=== PATIENT | female | born 2000 | race Hispanic/Latino ===

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

== ENCOUNTER 2023-07-16 15:07 | Emergency (ER) | payer OTHER ==
[~2023-07-16] VITALS: Ht 160 cm; Wt 60.3 kg
[~2023-07-16 15:07] MED LIST: ONDA4TAB6 PO
[2023-07-16] MEDS ORDERED: PREN1CHW6 PO (15:41)
[2023-07-16] MEDS ORDERED: NS 1,000 ML IV ONE (16:20)
[2023-07-16] MEDS ORDERED: ACETAMINOPHEN 500 MG TAB PO ONE (18:00)
[2023-07-16 18:56] LABS: BASO # 0.1 10^3/uL (0.0-0.2); BASO % 0.2 % (0.0-1.0); HEMATOCRIT 33.2 % (36.0-47.0); HEMOGLOBIN 11.2 g/dl (12.0-15.5); LYMPH # 0.8 10^3/uL (1.5-5.0); LYMPH % 3.6 % (24.0-44.0); MEAN CORPUSCULAR HEMOGLOBIN 29.2 pg (27.0-33.0); MEAN CORPUSCULAR HGB CONC 33.7 g/dl (32.0-36.5); MEAN CORPUSCULAR VOLUME 86.7 fl (80.0-96.0); MONO % 9.4 % (2.0-8.0); NEUTROPHILS # 19.7 10^3/uL (1.5-8.5); NEUTROPHILS % 85.7 % (36.0-66.0); PLATELET COUNT, AUTOMATED 261 10^3/uL (150-450); RED BLOOD COUNT 3.83 10^6/uL (4.00-5.40)
[2023-07-16 18:59] LABS: MONO # 2.2 10^3/uL (0.0-0.8)
[2023-07-16] MEDS ORDERED: cefTRIAXone SOD 1 GM in D5W MINI-BAG PLUS 50 ML IV ONE (19:05)
[2023-07-16] MEDS ORDERED: MED REC IN PROGRESS XX SCH (19:20)
[2023-07-16] MEDS ORDERED: HOME MED LIST COMPLETE! XX SCH (19:50)
[2023-07-16 20:16] VITALS: BP 109/61; TEMP 98.7; O2SAT 98
[2023-07-16 20:20] LABS: RSV AMPLIFICATION NEGATIVE (NEGATIVE)
[2023-07-16] MEDS ORDERED: LR 1,000 ML IV SCH (20:30)
[2023-07-16] MEDS ORDERED: ONDANSETRON 4MG 2ML VIAL IV PRN (20:30)
[2023-07-17] MEDS ORDERED: ACETAMINOPHEN 500 MG TAB PO SCH
[2023-07-17 08:42] LABS: BILIRUBIN,DIRECT 0.3 MG/DL (0.1-0.4); BILIRUBIN,TOTAL 0.8 MG/DL (0.2-1.3); TOTAL PROTEIN 7.4 G/DL (6.3-8.2)
[2023-07-17] MEDS ORDERED: ACET325C5 PO (22:42)
== END 2023-07-16 20:18 | disposition admitted as inpatient to this hospital (09) ==
LOC: M ED 15:07
DX: Z53.21 Procedure and treatment not carried out due to patient leaving prior to being seen by health care provider (principal)

== ENCOUNTER 2023-07-16 20:28 | Observation (INO) | payer OTHER ==
[~2023-07-16] VITALS: Ht 160 cm; Wt 62.3 kg
[~2023-07-16 20:28] MED LIST changes: +PREN1CHW6 PO
[2023-07-16 20:32] VITALS: BP 107/64
[2023-07-17 00:32] VITALS: BP 120/72
[2023-07-17] MEDS ORDERED: ONDANSETRON 4MG 2ML VIAL IV PRN (00:45)
[2023-07-17] MEDS ORDERED: ACETAMINOPHEN 500 MG TAB PO PRN (00:45)
[2023-07-17] MEDS: LR 1,000 ML IV SCH ×3 (00:59→16:45)
[2023-07-17 04:15] VITALS: BP 113/61
[2023-07-17] MEDS: ACETAMINOPHEN 500 MG TAB PO SCH ×2 (07:26→13:33)
[2023-07-17 07:27] VITALS: BP 105/56
[2023-07-17 07:51] LABS: BASO # 0.1 10^3/uL (0.0-0.2); BASO % 0.2 % (0.0-1.0); EOS % 0.1 % (0.0-3.0); HEMATOCRIT 27.9 % (36.0-47.0); HEMOGLOBIN 9.5 g/dl (12.0-15.5); LYMPH # 1.1 10^3/uL (1.5-5.0); LYMPH % 5.2 % (24.0-44.0); MEAN CORPUSCULAR HGB CONC 34.1 g/dl (32.0-36.5); MEAN CORPUSCULAR VOLUME 85.1 fl (80.0-96.0); MONO % 13.2 % (2.0-8.0); NEUTROPHILS # 16.7 10^3/uL (1.5-8.5); NEUTROPHILS % 77.8 % (36.0-66.0); PLATELET COUNT, AUTOMATED 224 10^3/uL (150-450); RED BLOOD COUNT 3.28 10^6/uL (4.00-5.40); WHITE BLOOD COUNT 21.5 10^3/uL (4.0-10.0)
[2023-07-17 08:15] LABS: MONO # 2.8 10^3/uL (0.0-0.8)
[2023-07-17 11:19] VITALS: BP 113/57
[2023-07-17 15:21] VITALS: BP 108/59
[2023-07-17 17:34] VITALS: BP 100/56
[2023-07-17] MEDS ORDERED: ACET325C5 PO (22:42)
[2023-07-18 07:02] LABS: BLOOD UREA NITROGEN 4 MG/DL (7-21); CREATININE FOR GFR 0.5 MG/DL (0.7-1.5); GLUCOSE, FASTING 64 MG/DL (70-99)
[2023-07-18 07:03] LABS: CHLORIDE LEVEL 103 MEQ/L (98-107); GLOMERULAR FILTRATION RATE > 60.0 (>60); POTASSIUM SERUM 4.2 MEQ/L (3.6-5.0); SODIUM LEVEL 134 MEQ/L (134-153)
[2023-07-18 07:04] LABS: ALT/SGPT 21 U/L (1-33); AST/SGOT 25 U/L (5-40); CALCIUM LEVEL 9.2 MG/DL (8.4-10.2); CARBON DIOXIDE LEVEL 13 MEQ/L (22-30)
[2023-07-18 07:05] LABS: ALKALINE PHOSPHATASE 137 U/L (35-104); BILIRUBIN,TOTAL < 0.7 MG/DL (0.2-1.3)
[2023-07-18 07:06] LABS: ALBUMIN 3.2 G/DL (3.9-5.0)
== END 2023-07-17 17:58 | disposition home or self-care (01) ==
LOC: M LDI 20:28
PROVIDERS: ADMIT Obstetrics & Gynecology; ATTEND Obstetrics & Gynecology
DX: O98.513 Other viral diseases complicating pregnancy, third trimester (principal); Z3A.31 31 weeks gestation of pregnancy
CPT/HCPCS: 36415; 59025; 76775; 80047; 80053; 80076; 81001; 83605; 85025; 87040; 87086; 87631; 99284; G0463; J0696; J2405